=== PATIENT | female | born 1950 | race Caucasian/White ===

== ENCOUNTER 2017-07-21 10:23 | Outpatient (CLI) | payer MEDICARE, BC ==
--- NOTE | 2017-07-21 11:56 | Diagnostic Imaging Report ---
Indication: COUGH, viral infection as many weeks Technique: One view of the chest Comparison: 08/21/2011 Findings: Peripheral linear opacities in the right upper lobe are seen on the PA view. These probably corresponds to some anterior linear opacities seen on the lateral view. Lateral view also demonstrates some posterior peripheral opacities without definite correlate on the PA view, so it is indeterminate whether these are in the right or left lung. Opacities are new since the 2001 exam, but are nonetheless more suggestive of scarring than consolidation. There are some linear opacities at the left lung base which most likely represent atelectasis or scarring. No definite focal airspace consolidation. The pleural spaces are clear. No congestion. Heart size is normal. There are degenerative changes of the thoracic spine. Impression: Peripheral linear opacities, as described, appearance more suggestive of scarring, but acute infiltrate also a possibility. No definite dense consolidation demonstrated Left basilar scarring or atelectasis
== END 2017-07-21 12:23 | disposition home or self-care (01) ==
LOC: RAD 10:23
DX: R05 Cough (principal)
CPT/HCPCS: 71020